=== PATIENT | male | born 1985 | race Caucasian/White ===

== ENCOUNTER 2020-06-09 19:09 | Emergency (ER) | payer OTHER ==
[~2020-06-09] VITALS: Ht 182.9 cm; Wt 95.3 kg
[2020-06-09 20:58] LABS: ABSOLUTE BASOPHILS 0.1 thou/uL (0.0-0.2); ABSOLUTE EOSINOPHILS 0.3 thou/uL (0.0-0.7); ABSOLUTE LYMPHOCYTES 3.4 thou/uL (0.8-5.3); ABSOLUTE MONOCYTES 0.9 thou/uL (0.0-1.2); ABSOLUTE NEUTROPHILS 4.1 thou/uL (1.6-8.1); EOSINOPHILS 3.2 %; HEMATOCRIT 49.5 % (42.0-52.0); HEMOGLOBIN 16.7 gm/dL (14.0-18.0); LYMPHOCYTES 38.5 %; MCH 31.1 pg (26.0-34.0); MCHC 33.8 g/dL (28.0-37.0); MCV 91.9 fL (80.0-100.0); MONOCYTES 9.8 %; MPV 8.8 fl. (7.2-11.1); NUCLEATED RBCS 0 /100WBC; PLATELET COUNT* 229 thou/uL (150-400); POLYS 47.5 %; RBC 5.38 mil/uL (4.50-6.00); RDW-CV 13.5 % (10.5-14.5); WBC 8.7 thou/uL (4.0-11.0)
[2020-06-09 21:13] LABS: CALCIUM 8.9 mg/dL (8.5-10.1); CREATININE 1.6 mg/dL (0.6-1.3); POTASSIUM 3.9 mmol/L (3.5-5.1)
[2020-06-09 21:30] LABS: ALBUMIN 4.1 g/dL (3.4-5.0); MAGNESIUM 2.1 mg/dL (1.8-2.4); TOTAL BILIRUBIN 0.4 mg/dL (<0.1-1.0); TOTAL PROTEIN 7.7 g/dL (6.4-8.2)
[2020-06-09] MEDS ORDERED: NORCO 5-325 TA1 EAC2 PO (22:56)
[2020-06-09] MEDS ORDERED: IBUPROFEN 800800 M1 PO (22:56)
[2020-06-09 23:07] VITALS: BP 122/67
--- NOTE | 2020-06-10 11:03 | EKG ---
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1985 Requested By: Pedro Quesada Order Number: [id number] MD: Yehuda Goel Measurements Intervals [place] Rate: 63 P: 43 MI: 151 QRS: -59 QRSD: 110 T: 46 QT: 374 QTc: 383 Interpretive Statements Sinus rhythm Probable left atrial enlargement Incomplete RBBB and LAFB No previous ECG available for comparison Electronically Signed On 06-10-2020 11:03:24 EMERGENCY DEPARTMENT COORDINATOR by Yehuda Goel [email or web address] <ELECTRONICALLY SIGNED> By: Yehuda Goel MD, [facility] 06/10/203 14 14 Yehuda Goel MD, FACC /EPI
--- NOTE | 2020-06-10 11:04 | EKG ---
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
== END 2020-06-09 23:07 | disposition home or self-care (01) ==
LOC: M.ERS 19:09
PROVIDERS: Emergency Medicine Emergency Medical Services
DX: R07.9 Chest pain, unspecified (principal)